=== PATIENT | male | born 1995 | race Caucasian/White ===

== ENCOUNTER 2020-11-05 20:08 | Emergency (ER) | payer OTHER, BC ==
[2020-11-05 20:24] VITALS: BP 137/84; PULSE 114; RESP 18; TEMP 98.9
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
[2020-11-05] MEDS ORDERED: ACETAMINOPHEN TAB 500 MG TAB PO STA (21:08)
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
== END 2020-11-05 21:45 | disposition home or self-care (01) ==
LOC: EC 20:08
DX: R10.9 Unspecified abdominal pain (principal); V89.2XXA Person injured in unspecified motor-vehicle accident, traffic, initial encounter
CPT/HCPCS: 70450; 71046; 72125; 99284